=== PATIENT | female | born 1965 | race Caucasian/White ===

== ENCOUNTER 2017-07-19 08:51 | Emergency (ER) | payer SELFPAY ==
[~2017-07-19] VITALS: Ht 175.3 cm; Wt 75.0 kg
[2017-07-19 08:54] VITALS: BP 148/84; PULSE 92; RESP 18; TEMP 98.6; O2SAT 99
[2017-07-19] MEDS ORDERED: ONDANSETRON HCL 4 MG/2 ML VIAL IV PUSH ONE ×2 (10:00→10:15)
[2017-07-19] MEDS ORDERED: SODIUM CHLOR 0.9% 1000 ML INJ 1,000 ML IV ONE (10:00)
[2017-07-19] MEDS ORDERED: methylPREDNISolone SOD SUCC 125 MG/2 ML VIAL IV PUSH ONE (10:00)
[2017-07-19] MEDS ORDERED: RESP: ALBUTEROL 2.5 MG/IPRATROPIUM 0.5 MG NEB (SCH) NEB ONE (10:00)
[2017-07-19] MEDS ORDERED: RESP: LIDOCAINE HCL 4% PF 5 ML NEB NEB ONE (10:00)
--- NOTE | 2017-07-19 10:05 | PD ---
HPI Chief Complaint: Cold / Flu Symptoms Time Seen by Provider: 09:49 Travel History International Travel<30 days: No Contact w/Intl Traveler<30days: No Traveled to known affect area: No History of Present Illness HPI the patient is a 52-year-old female who presents to the emergency department for cough and cold symptoms of one week's duration. The patient states she developed URI symptoms 1 week ago and then developed a productive cough producing yellow to green sputum. The patient then developed shortness of breath yesterday which has progressed. She does complain of subjective fevers at home, states her normal temperature is lower than the average, states she's had intermittent chills and sweats at home. She now complains of increasing shortness of breath with her productive cough. She does have a history of tobacco use. The patient states she has a history of transverse myelitis secondary to an influenza vaccination and states she is scared of getting sick. The patient states she moved to local area recently and does not have a local primary physician. However, she may call and schedule appointment tomorrow, is unsure the name of the physician. She denies any history no cardiomyopathy or previous pulmonary embolism/DVT. Symptoms are moderate, there are no current alleviating or exacerbating factors. PFSH Past Medical History Narrative Medical Transverse myelitis Past Surgical History Narrative Surgical Noncontributory Social History Tobacco Use: Yes Allergies-Medications (Allergen,Severity, Reaction): Coded Allergies: Iodinated Contrast- Oral and IV Dye (Verified Allergy, Severe, 07/19/17) MRI PRECAUTION (Verified Allergy, Severe, 07/19/17) Sulfa (Sulfonamide Antibiotics) (Verified Allergy, Intermediate, rash, 07/19/17) penicillin G (Verified Allergy, Intermediate, rash, 07/19/17) prochlorperazine (Verified Allergy, Intermediate, 07/19/17) Reported Meds & Prescriptions Reported Meds & Active Scripts Active Reported Klonopin (Clonazepam) 1 Mg Tab 1 Mg PO TID PRN Cymbalta DR (Duloxetine HCl) 60 Mg Capdr 60 Mg PO DAILY Lyrica (Pregabalin) 100 Mg Cap 100 Mg PO BID Methocarbamol 750 Mg Tab 1-2 Tab PO TID Leigh-D 12 Hour Allergy (Fexofenadine-Pseudoephedrine ER 12 HR) 60-120 Mg Rosanne 1 Tab PO BID PRN Review of Systems Except as stated in HPI: all other systems reviewed are Neg General / Constitutional: Positive: Fever (subjective), Chills HENT: Positive: Lightheadedness Cardiovascular: No: Chest Pain or Discomfort Respiratory: Positive: Cough, Shortness of Breath Gastrointestinal: Positive: Nausea, No: Vomiting, Diarrhea, Abdominal Pain Genitourinary: Positive: Decreased Urinary Output, No: Dysuria Musculoskeletal: Positive: Myalgias, Weakness Physical Exam Narrative GENERAL: Awake, alert, nontoxic-appearing 52-year-old female who appears her stated age and is in no acute respiratory distress. SKIN: Focused skin assessment warm/dry. HEAD: Atraumatic. Normocephalic. EYES: Pupils equal and round. No scleral icterus. No injection or drainage. ENT: No nasal bleeding or discharge. Mucous membranes pink and moist. NECK: Trachea midline. No JVD. CARDIOVASCULAR: Regular rate and rhythm. No murmur appreciated. Heart rate in the 90s. RESPIRATORY: No accessory muscle use. Few scattered rhonchi. GASTROINTESTINAL: Abdomen soft, non-tender, nondistended. No rebound tenderness. MUSCULOSKELETAL: No obvious deformities. No clubbing. No cyanosis. No edema. NEUROLOGICAL: Awake and alert. No obvious cranial nerve deficits. Motor grossly within normal limits. Normal speech. PSYCHIATRIC: Appropriate mood and affect; insight and judgment normal. Data Data Last Documented VS Vital Signs Date Time Temp Pulse Resp B/P (MAP) Pulse Ox O2 Delivery O2 Flow Rate FiO2 07/19/17 10:43 16 98 Room Air 07/19/17 10:43 98.7 87 141/87 (105) Orders Orders Complete Blood Count With Diff (07/19/17 09:57) Basic Metabolic Panel (Bmp) (07/19/17 09:57) Urinalysis - C+S If Indicated (07/19/17 09:57) Lactic Acid (07/19/17 09:57) Chest, Single Ap (07/19/17 ) Sodium Chlor 0.9% 1000 Ml Inj (Ns 1000 M (07/19/17 10:00) Ondansetron Inj (Zofran Inj) (07/19/17 10:00) Methylprednisolone So Succ Inj (Solumedr (07/19/17 10:00) Albuterol-Ipratropium Neb (Duoneb Neb) (07/19/17 10:00) Lidocaine Pf 4% Neb (Lidocaine Pf 4% Neb (07/19/17 10:00) Ondansetron Inj (Zofran Inj) (07/19/17 10:15) Labs Laboratory Tests Test 07/19/17 10:35 07/19/17 11:15 White Blood Count 6.6 TH/MM3 Red Blood Count 4.66 MIL/MM3 Hemoglobin 13.7 GM/DL Hematocrit 39.9 % Mean Corpuscular Volume 85.5 FL Mean Corpuscular Hemoglobin 29.4 PG Mean Corpuscular Hemoglobin Concent 34.4 % Red Cell Distribution Width 12.0 % Platelet Count 133 TH/MM3 Mean Platelet Volume 8.5 FL Neutrophils (%) (Auto) 76.9 % Lymphocytes (%) (Auto) 13.7 % Monocytes (%) (Auto) 7.3 % Eosinophils (%) (Auto) 0.8 % Basophils (%) (Auto) 1.3 % Neutrophils # (Auto) 5.0 TH/MM3 Lymphocytes # (Auto) 0.9 TH/MM3 Monocytes # (Auto) 0.5 TH/MM3 Eosinophils # (Auto) 0.1 TH/MM3 Basophils # (Auto) 0.1 TH/MM3 CBC Comment DIFF FINAL Differential Comment Blood Urea Nitrogen 9 MG/DL Creatinine 0.58 MG/DL Random Glucose 90 MG/DL Calcium Level 8.2 MG/DL Sodium Level 140 MEQ/L Potassium Level 3.7 MEQ/L Chloride Level 106 MEQ/L Carbon Dioxide Level 25.8 MEQ/L Anion Gap 8 MEQ/L Estimat Glomerular Filtration Rate 110 ML/MIN Lactic Acid Level 0.6 mmol/L [facility] Medical Decision Making Medical Screen Exam Complete: Yes Emergency Medical Condition: Yes Medical Record Reviewed: Yes Interpretation(s) Chest x-ray reveals no acute disease Differential Diagnosis Differential diagnosis includes bronchitis, pneumonia, URI, influenza, viral syndrome, pyelonephritis, pulmonary embolism, pulmonary edema, congestive heart failure. Narrative Course IV was established, labs are drawn and sent, and the patient was placed on cardiac telemetry monitoring and continuous pulse oximetry monitoring. Chest x- ray was obtained. The patient's symptoms been ongoing for 1 week, therefore, influenza screen was not obtained. The patient was administered Solu-Medrol, duo nebs, Zofran, and IV fluids. Chest x-rays unremarkable, no evidence of mass , infiltrate, or effusion. Laboratory evaluation includes a normal white count and normal lactic acid. The patient appears to have bronchitis with secondary tobacco use, will be treated with prednisone, albuterol inhaler, Phenergan with codeine, and Zithromax. She has an appointment tomorrow with her primary physician, she is advised to keep that appointment. Return sooner if symptoms worsen or progress. Diagnosis Primary Impression: Bronchitis Patient Instructions: General Instructions Additional Instructions: Medications as directed. Follow-up with her primary physician. Stop smoking. Please provide the patient a copy of her lab results and x-ray results at discharge. Follow-up with your physician tomorrow as scheduled. Return sooner if symptoms worsen or progress. Med/Other Pt SpecificInfo: Prescription(s) given Scripts Albuterol 18 GM Inh (Ventolin Hfa 18 GM Inh) 90 Mcg/Act Aer 2 PUFF INH Q4H Y for SHORTNESS OF BREATH, #1 INHALER 0 Refills Prov: Liang Mosqueda MD 07/19/17 Azithromycin (Zithromax Z-Carlos) 250 Mg Dspk 250 MG PO DIRECTED for Infection, #1 DSPK 0 Refills 500 MG (2 tabs) day 1, then 1 tab days 2-5. Prov: Liang Mosqueda MD 07/19/17 Prednisone (Deltasone) 20 Mg Tab 40 MG PO DAILY for 4 Days, #8 TAB 0 Refills Prov: Liang Mosqueda MD 07/19/17 Promethazine-Codeine Liq (Promethazine-Codeine Liq) 6.25-10 Mg/5 Ml Syrp 5 ML PO Q6H Y for COUGH AND/OR COLD SYMPTOMS, #120 ML 0 Refills Prov: Liang Mosqueda MD 07/19/17 Disposition: 01 DISCHARGE HOME Condition: Stable Liang Mosqueda MD Jul 19, 2017 10:05
[2017-07-19] MEDS ORDERED: LYRI100C PO (10:15)
[2017-07-19] MEDS ORDERED: ALLE12TA2 PO (10:15)
[2017-07-19] MEDS ORDERED: CLON1 PO (10:15)
[2017-07-19] MEDS ORDERED: METH750T PO (10:15)
[2017-07-19] MEDS ORDERED: CYMB60CA PO (10:15)
--- NOTE | 2017-07-19 10:29 | RADRPT ---
EXAM DATE/TIME: 07/19/2017 10:04 [facility] COMPARISON: No previous studies available for comparison. INDICATIONS : Cough, short of breath, chest pain. MEDICAL HISTORY : None. SURGICAL HISTORY : None. ENCOUNTER: Initial ACUITY: 1 week PAIN SCORE: 5/10 LOCATION: Bilateral chest FINDINGS: A single view of the chest demonstrates the lungs to be symmetrically aerated without evidence of mas s, infiltrate or effusion. The cardiomediastinal contours are unremarkable. Osseous structures are intact. CONCLUSION: No acute disease. Nagi Kimball MD on July 19, 2017 at 10:27 Board Certified Radiologist. This report was verified electronically.
[2017-07-19 10:39] VITALS: BP 143/84; PULSE 86; RESP 16; O2SAT 98
[2017-07-19 10:43] VITALS: BP 141/87; PULSE 87; RESP 16; TEMP 98.7; O2SAT 98
[2017-07-19 10:44] LABS: BASOPHIL # 0.1 TH/MM3 (0-0.2); BASOPHIL % 1.3 % (0.0-2.0); EOSINOPHIL # 0.1 TH/MM3 (0-0.4); EOSINOPHIL % 0.8 % (0.0-4.0); HEMATOCRIT 39.9 % (35.0-46.0); LYMPH % 13.7 % (9.0-44.0); LYMPHOCYTE # 0.9 TH/MM3 (1.0-4.8); MEAN CELL VOLUME 85.5 FL (80.0-100.0); MEAN CORPUSCULAR HEMOGLOBIN 29.4 PG (27.0-34.0); MEAN CORPUSCULAR HGB CONC 34.4 % (32.0-36.0); MONO % 7.3 % (0.0-8.0); NEUT % 76.9 % (16.0-70.0); PLATELET COUNT 133 TH/MM3 (150-450); RED BLOOD COUNT 4.66 MIL/MM3 (4.00-5.30); WHITE BLOOD COUNT 6.6 TH/MM3 (4.0-11.0)
[2017-07-19 10:46] LABS: HEMO FLAGS DIFF FINAL
[2017-07-19 10:53] LABS: POTASSIUM 3.7 MEQ/L (3.5-5.1)
[2017-07-19 10:56] LABS: BICARBONATE 25.8 MEQ/L (21.0-32.0)
[2017-07-19] MEDS ORDERED: PRED-503 PO (11:35)
[2017-07-19] MEDS ORDERED: PROM6.256 PO (11:35)
[2017-07-19] MEDS ORDERED: VENTAER INH (11:36)
[2017-07-19] MEDS ORDERED: ZITHTAB PO (11:36)
[2017-07-19 11:42] LABS: BLOOD, URINE TRACE (NEG); GLUCOSE,URINE NEG (NEG); KETONE, URINE NEG (NEG); NITRITE,URINE NEG (NEG); PH, URINE 6.5 (5.0-8.5)
[2017-07-19 11:57] LABS: METHOD OF COLLECTION CLEAN CATCH; RBC, URINE 0-3 /hpf (0-3); URINE COLOR YELLOW (YELLW/STRAW)
[2017-07-19 11:58] LABS: COMMENT (UR) CULT NOT INDICATED; CULTURE IF INDICATED CULT NOT INDICATED
== END 2017-07-19 12:09 | disposition home or self-care (01) ==
LOC: PHED 08:51
DX: J40 Bronchitis, not specified as acute or chronic (principal); Z72.0 Tobacco use
CPT/HCPCS: 71010; 80048; 81001; 83605; 85025; 94664; 96361; 96374; 96375; 99284; J2405; J2930; J7030

== ENCOUNTER 2017-12-16 19:36 | Emergency (ER) | payer BC ==
[~2017-12-16] VITALS: Ht 175.3 cm; Wt 80.0 kg
[~2017-12-16 19:36] MED LIST: ALLE12TA2 PO; CLON1 PO; CYMB60CA PO; LYRI100C PO; METH750T PO; PRED-503 PO; PROM6.256 PO; VENTAER INH; ZITHTAB PO
[2017-12-16 19:39] VITALS: BP 154/94; PULSE 78; RESP 18; TEMP 97.2; O2SAT 100
[2017-12-16] MEDS ORDERED: PROPARACAINE HCL 0.5% OPHT SOLN 15 ML BTL EACH EYE ONE (20:00)
[2017-12-16] MEDS ORDERED: FLUORESCEIN SOD 1 MG STRIP EACH EYE ONE (20:00)
[2017-12-16] MEDS ORDERED: CIPRHC10A LEFT EAR (20:17)
[2017-12-16] MEDS ORDERED: TRAM50TA PO (20:17)
--- NOTE | 2017-12-16 20:17 | PD ---
HPI Chief Complaint: Eye Problems/Injury Time Seen by Provider: 19:49 Travel History International Travel<30 days: No Contact w/Intl Traveler<30days: No Traveled to known affect area: No History of Present Illness HPI 52-year-old female complains of foreign body sensation left eye. Patient was washing dishes and a wine rack above her with glasses broke causing her glass shattered with foreign body left eye. Constant pain is noted. Blurred vision is noted. Pain is worse with range of motion of the eyes. Injury occurred about 1 hour prior. PFSH Past Medical History Arthritis: Yes Diminished Hearing: No Tetanus Vaccination: < 5 Years Influenza Vaccination: No ?: Not LMP: 11/24/2017 Ectopic : Yes Past Surgical History Appendectomy: Yes Gynecologic Surgery: Yes (right oophorectomy, breast reduction) Other Surgery: Yes (neck and lower back) Social History Alcohol Use: No Tobacco Use: Yes (09/18 ppd ) Substance Use: No Allergies-Medications (Allergen,Severity, Reaction): Coded Allergies: Iodinated Contrast- Oral and IV Dye (Verified Allergy, Severe, 12/16/17) MRI PRECAUTION (Verified Allergy, Severe, 12/16/17) gabapentin (Verified Allergy, Severe, 12/16/17) suicidal topiramate (Verified Allergy, Severe, 12/16/17) suicdal Sulfa (Sulfonamide Antibiotics) (Verified Allergy, Intermediate, rash, 12/16) penicillin G (Verified Allergy, Intermediate, rash, 12/16/17) prochlorperazine (Verified Allergy, Intermediate, 12/16/17) Reported Meds & Prescriptions Reported Meds & Active Scripts Active Ventolin Hfa 18 GM Inh (Albuterol Sulfate) 90 Mcg/Act Aer 2 Puff INH Q4H PRN Zithromax Z-Carlos (Azithromycin) 250 Mg Dspk 250 Mg PO DIRECTED 500 MG (2 tabs) day 1, then 1 tab days 2-5. Deltasone (Prednisone) 20 Mg Tab 40 Mg PO DAILY 4 Days Promethazine-Codeine Liq 6.25-10 Mg/5 Ml Syrp 5 Ml PO Q6H PRN Reported Klonopin (Clonazepam) 1 Mg Tab 1 Mg PO TID PRN Cymbalta DR (Duloxetine HCl) 60 Mg Capdr 60 Mg PO DAILY Lyrica (Pregabalin) 100 Mg Cap 100 Mg PO BID Methocarbamol 750 Mg Tab 1-2 Tab PO TID Leigh-D 12 Hour Allergy (Fexofenadine-Pseudoephedrine ER 12 HR) 60-120 Mg Rosanne 1 Tab PO BID PRN Review of Systems Except as stated in HPI: all other systems reviewed are Neg General / Constitutional: No: Fever Physical Exam Narrative GENERAL: 52 yo F, WNWD, AOX3 Vital Signs Date Time Temp Pulse Resp B/P (MAP) Pulse Ox O2 Delivery O2 Flow Rate FiO2 12/16/17 19:39 97.2 78 18 154/94 (114) 100 SKIN: Warm and dry. HEAD: Atraumatic. Normocephalic. EYES: Pupils equal and round. No scleral icterus. Fluorosceine stain reveals no corneal uptake. No appreciable foreign body. ENT: No nasal bleeding or discharge. Mucous membranes pink and moist. NECK: Trachea midline. No JVD. CARDIOVASCULAR: Regular rate and rhythm. RESPIRATORY: No accessory muscle use. Clear to auscultation. Breath sounds equal bilaterally. GASTROINTESTINAL: Abdomen soft, non-tender, nondistended. Hepatic and splenic margins not palpable. MUSCULOSKELETAL: Extremities without clubbing, cyanosis, or edema. No obvious deformities. NEUROLOGICAL: Awake and alert. No obvious cranial nerve deficits. Motor grossly within normal limits. Five out of 5 muscle strength in the arms and legs. Normal speech. PSYCHIATRIC: Appropriate mood and affect; insight and judgment normal. Data Data Last Documented VS Vital Signs Date Time Temp Pulse Resp B/P (MAP) Pulse Ox O2 Delivery O2 Flow Rate FiO2 12/16/17 19:39 97.2 78 18 154/94 (114) 100 Orders Orders Proparacaine 0.5% Opth Soln (Alcaine 0.5 (12/16/17 20:00) Fluorescein Strip (Iyzco-V-Woihep A.T.) (12/16/17 20:00) Ed Discharge Order (12/16/17 20:06) [facility] Medical Decision Making Medical Screen Exam Complete: Yes Emergency Medical Condition: Yes Medical Record Reviewed: Yes Differential Diagnosis Corneal abrasion, foreign body, cellulitis Narrative Course Starkey lamp evaluation reveals no corneal abrasion or foreign body however patient describes symptoms consistent with that such that a very minute similar process is not 100% excluded. Prescription as below. Follow-up with Dr. Hoyos. Diagnosis Primary Impression: Foreign body, eye Qualified Codes: T15.92XA - Foreign body on external eye, part unspecified, left eye, initial encounter Referrals: Li Hoyos MD 1 day Med/Other Pt SpecificInfo: Prescription(s) given Scripts Tramadol (Tramadol) 50 Mg Tab 50 MG PO Q8H Y for PAIN SCALE 6 TO 10, #20 TAB 0 Refills Prov: Kb Dennis MD 12/16/17 Ciprofloxacin-Hydrocortisone Otic Drops (Cipro Hc Otic Drops) 0.2-1% Susp 3 DROP LEFT EAR BID for Infection for 7 Days, #1 BOTTLE 0 Refills Prov: Kb Dennis MD 12/16/17 Disposition: 01 DISCHARGE HOME Condition: Stable Kb Dennis MD Dec 16, 2017 20:17
[2017-12-16] MEDS ORDERED: ACETAMINOPHEN/HYDROcodone 325 MG/5 MG TAB PO ONE (20:30)
== END 2017-12-16 20:35 | disposition home or self-care (01) ==
LOC: NEPD 19:36
DX: T15.92XA Foreign body on external eye, part unspecified, left eye, initial encounter (principal); M19.90 Unspecified osteoarthritis, unspecified site; F17.200 Nicotine dependence, unspecified, uncomplicated; W22.8XXA Striking against or struck by other objects, initial encounter; Z79.51 Long term (current) use of inhaled steroids; Z79.899 Other long term (current) drug therapy
CPT/HCPCS: 99283